=== PATIENT | female | born 1950 | race Caucasian/White ===

== ENCOUNTER 2018-03-02 12:04 | Inpatient (IN) | payer MEDICARE, OTHER ==
[2018-03-02 13:19] LABS: BASO # 0.1 (0.0-0.2); BASO % 0.7 % (0.0-2.0); EOS # 0.4 (0.0-0.7); EOS % 3.6 % (0-4.0); GRAN # 7.6 (1.4-6.5); GRAN % 69.1 % (42.2-75.2); HEMOGLOBIN 11.5 g/dl (12.5-16.0); LYMPH % 18.6 % (20.0-51.0); MEAN CELL VOLUME 98 fl (80.0-100.0); MEAN CORPUSCULAR HEMOGLOBIN 33 pg (27.0-31.0); MEAN CORPUSCULAR HGB CONC 33 g/dl (33.0-37.0); MEAN PLATELET VOLUME 9.8 fl (7.4-10.4); MONO # 0.8 (0.1-0.6); MONO % 7.7 % (1.7-9.3); PLATELET COUNT 275 K/mm3 (130-400); RED BLOOD COUNT 3.52 M/mm3 (4.10-5.30)
[2018-03-02 13:20] LABS: HEMATOCRIT 34.5 % (37.0-47.0)
[2018-03-02] MEDS ORDERED: TOPROL XL 50MG50 MG PO (13:21)
[2018-03-02] MEDS ORDERED: XANAX .25M0.25 MG/TA PO (13:21)
[2018-03-02] MEDS ORDERED: BENADRYL50 MG PO (13:22)
[2018-03-02] MEDS ORDERED: PHARMASSURE ZIN50 MG PO (13:23)
[2018-03-02] MEDS ORDERED: MULTI VITAMINS1 TAB PO (13:23)
[2018-03-02 13:24] LABS: PROTHROMBIN TIME 11.7 SECONDS (9.7-12.8)
[2018-03-02] MEDS ORDERED: ASPIRIN 81M81 MG/TA2 PO (13:24)
[2018-03-02 13:27] LABS: PARTIAL THROMBOPLASTIN TIME 42.6 SECONDS (26.0-37.0)
[2018-03-02 13:31] LABS: ALBUMIN 4.4 gm/dL (3.5-5.0); BILIRUBIN,TOTAL 0.7 mg/dL (0.0-1.0); POTASSIUM 5.2 mmol/L (3.4-5.0); TOTAL PROTEIN 9.7 gm/dL (6.4-8.2)
[2018-03-02 13:43] LABS: CREATININE, serum 8.24 mg/dL (0.52-1.25)
[2018-03-02 13:54] VITALS: BP 216/85; PULSE 64
[2018-03-02 16:11] VITALS: BP 202/62; PULSE 64; TEMP 97.5
[2018-03-02 19:01] LABS: CALCIUM 9.3 mg/dL (8.4-10.2); POTASSIUM 5.3 mmol/L (3.4-5.0)
[2018-03-02 19:23] LABS: CREATININE, serum 8.17 mg/dL (0.52-1.25)
[2018-03-02 23:53] VITALS: BP 139/42; PULSE 70; TEMP 97.9
[2018-03-03 00:09] VITALS: BP 155/54; PULSE 71; TEMP 99
[2018-03-03 04:02] VITALS: BP 119/34; PULSE 64; TEMP 98.4
[2018-03-03 06:51] LABS: BASO # 0.1 (0.0-0.2); BASO % 0.7 % (0.0-2.0); EOS # 0.2 (0.0-0.7); EOS % 2.1 % (0-4.0); GRAN # 5.8 (1.4-6.5); LYMPH # 1.8 (1.2-3.4); LYMPH % 20.3 % (20.0-51.0); MEAN CELL VOLUME 101 fl (80.0-100.0); MEAN CORPUSCULAR HGB CONC 33 g/dl (33.0-37.0); MEAN PLATELET VOLUME 9.7 fl (7.4-10.4); MONO % 10.7 % (1.7-9.3); PLATELET COUNT 212 K/mm3 (130-400); RED BLOOD COUNT 2.96 M/mm3 (4.10-5.30)
[2018-03-03 06:57] LABS: HEMOGLOBIN 9.9 g/dl (12.5-16.0); MEAN CORPUSCULAR HEMOGLOBIN 33 pg (27.0-31.0)
[2018-03-03 07:02] LABS: POTASSIUM 5.3 mmol/L (3.4-5.0)
[2018-03-03 07:08] LABS: CREATININE, serum 6.12 mg/dL (0.52-1.25)
[2018-03-03 08:14] VITALS: BP 136/38; PULSE 68; TEMP 98.5
== END 2018-03-03 11:13 | disposition home or self-care (01) | DRG 252 ==
LOC: MEDICAL 12:04
PROVIDERS: Internal Medicine Nephrology; Nurse Practitioner
PROC: 057A3ZZ Dilation of Left Brachial Vein, Percutaneous Approach (ICD-10-PCS; principal; 2018-03-02)
PROC: 057F3ZZ Dilation of Left Cephalic Vein, Percutaneous Approach (ICD-10-PCS; 2018-03-02)
PROC: 05CA3ZZ Extirpation of Matter from Left Brachial Vein, Percutaneous Approach (ICD-10-PCS; 2018-03-02)
PROC: 05CF3ZZ Extirpation of Matter from Left Cephalic Vein, Percutaneous Approach (ICD-10-PCS; 2018-03-02)
PROC: 5A1D70Z Performance of Urinary Filtration, Intermittent, Less than 6 Hours Per Day (ICD-10-PCS; 2018-03-02)
DX: T82.868A Thrombosis due to vascular prosthetic devices, implants and grafts, initial encounter (principal); N18.6 End stage renal disease; I13.2 Hypertensive heart and chronic kidney disease with heart failure and with stage 5 chronic kidney disease, or end stage renal disease; I50.32 Chronic diastolic (congestive) heart failure; E11.22 Type 2 diabetes mellitus with diabetic chronic kidney disease; Z99.2 Dependence on renal dialysis; D63.1 Anemia in chronic kidney disease; E11.319 Type 2 diabetes mellitus with unspecified diabetic retinopathy without macular edema; I48.91 Unspecified atrial fibrillation
CPT/HCPCS: C1725; C1769; C1887; C1894; J1200; J2405; J3010; Q9967

== ENCOUNTER 2018-03-07 11:38 | Inpatient (IN) | payer MEDICARE, OTHER ==
[~2018-03-07] VITALS: Ht 165.1 cm; Wt 93.0 kg
[~2018-03-07 11:38] MED LIST: ASPIRIN 81M81 MG/TA2 PO; BENADRYL50 MG PO; MULTI VITAMINS1 TAB PO; PHARMASSURE ZIN50 MG PO; TOPROL XL 50MG50 MG PO; XANAX .25M0.25 MG/TA PO
[2018-03-07 12:29] VITALS: BP 193/77; PULSE 65
[2018-03-07] MEDS ORDERED: FLEXERIL5 MG PO (12:39)
[2018-03-07] MEDS ORDERED: TYLENOL 500MG500 MG PO (12:40)
[2018-03-07] MEDS ORDERED: ZOFRAN 4MG T4 MG/TAB PO (12:41)
[2018-03-07 12:55] VITALS: BP 193/77; PULSE 65; TEMP 97.9
[2018-03-07 18:05] VITALS: BP 165/48; PULSE 75; TEMP 98.5
[2018-03-07 19:25] VITALS: BP 214/68; PULSE 78; TEMP 99.5
[2018-03-07 19:54] VITALS: BP 212/63
[2018-03-07 20:26] VITALS: BP 162/84
[2018-03-08 01:13] LABS: BASO % 0.5 % (0.0-2.0); EOS # 0.4 (0.0-0.7); EOS % 4.6 % (0-4.0); GRAN % 65.9 % (42.2-75.2); LYMPH # 1.5 (1.2-3.4); LYMPH % 19.7 % (20.0-51.0); MEAN CELL VOLUME 99 fl (80.0-100.0); MEAN CORPUSCULAR HGB CONC 34 g/dl (33.0-37.0); MEAN PLATELET VOLUME 9.5 fl (7.4-10.4); MONO # 0.7 (0.1-0.6); MONO % 8.9 % (1.7-9.3); PLATELET COUNT 204 K/mm3 (130-400); RED BLOOD COUNT 2.78 M/mm3 (4.10-5.30); REDCELL DISTRIBUTION WIDTH-CV 12.7 % (11.5-14.5)
[2018-03-08 01:15] LABS: HEMATOCRIT 27.4 % (37.0-47.0); HEMOGLOBIN 9.3 g/dl (12.5-16.0); MEAN CORPUSCULAR HEMOGLOBIN 33 pg (27.0-31.0)
[2018-03-08 01:26] VITALS: BP 165/61; PULSE 67; TEMP 97.9
[2018-03-08 03:50] VITALS: BP 159/63; PULSE 67; TEMP 98
[2018-03-08 10:31] VITALS: BP 137/54; PULSE 67; TEMP 97.8
[2018-03-08] MEDS ORDERED: ELIQUIS 2.5 PO (10:33)
[2018-03-08 12:11] LABS: CALCIUM 9.2 mg/dL (8.4-10.2); POTASSIUM 4.7 mmol/L (3.4-5.0)
[2018-03-08 12:34] LABS: CREATININE, serum 5.19 mg/dL (0.52-1.25)
[2018-03-08 13:38] VITALS: BP 133/65; PULSE 67; TEMP 98.1
== END 2018-03-08 18:30 | disposition home or self-care (01) | DRG 252 ==
LOC: EUO 11:38 → MEDICAL 17:19 → EUO 17:36 → MEDICAL 17:38
PROVIDERS: Internal Medicine
PROC: 03C83ZZ Extirpation of Matter from Left Brachial Artery, Percutaneous Approach (ICD-10-PCS; 2018-03-07)
PROC: 03783ZZ Dilation of Left Brachial Artery, Percutaneous Approach (ICD-10-PCS; 2018-03-07)
PROC: 057A3ZZ Dilation of Left Brachial Vein, Percutaneous Approach (ICD-10-PCS; 2018-03-07)
PROC: 3E05317 Introduction of Other Thrombolytic into Peripheral Artery, Percutaneous Approach (ICD-10-PCS; 2018-03-07)
PROC: 5A1D70Z Performance of Urinary Filtration, Intermittent, Less than 6 Hours Per Day (ICD-10-PCS; principal; 2018-03-08)
DX: T82.868A Thrombosis due to vascular prosthetic devices, implants and grafts, initial encounter (principal); N18.6 End stage renal disease; I13.2 Hypertensive heart and chronic kidney disease with heart failure and with stage 5 chronic kidney disease, or end stage renal disease; I50.32 Chronic diastolic (congestive) heart failure; E46 Unspecified protein-calorie malnutrition; E11.22 Type 2 diabetes mellitus with diabetic chronic kidney disease; I50.84 End stage heart failure; Z99.2 Dependence on renal dialysis; F41.9 Anxiety disorder, unspecified; E11.319 Type 2 diabetes mellitus with unspecified diabetic retinopathy without macular edema
CPT/HCPCS: A4216; J1644; J2997; Q9967

== ENCOUNTER 2018-04-02 07:53 | Inpatient (IN) | payer MEDICARE, OTHER ==
[~2018-04-02] VITALS: Ht 165.1 cm; Wt 96.7 kg
[~2018-04-02 07:53] MED LIST changes: +ELIQUIS 2.5 PO; +FLEXERIL5 MG PO; +TYLENOL 500MG500 MG PO; +ZOFRAN 4MG T4 MG/TAB PO
[2018-04-02 08:22] VITALS: BP 187/64; PULSE 63; TEMP 98
[2018-04-02] MEDS ORDERED: PROVENTIL0.09 MG/A1 IH (09:24)
[2018-04-02 10:49] VITALS: BP 199/84; PULSE 65
[2018-04-02 12:48] LABS: BASO % 0.5 % (0.0-2.0); EOS # 0.3 (0.0-0.7); EOS % 4.5 % (0-4.0); GRAN # 5.1 (1.4-6.5); LYMPH # 1.5 (1.2-3.4); LYMPH % 19.9 % (20.0-51.0); MEAN CELL VOLUME 102 fl (80.0-100.0); MEAN CORPUSCULAR HGB CONC 33 g/dl (33.0-37.0); MEAN PLATELET VOLUME 9.6 fl (7.4-10.4); MONO # 0.6 (0.1-0.6); MONO % 7.8 % (1.7-9.3); PLATELET COUNT 221 K/mm3 (130-400); RED BLOOD COUNT 2.61 M/mm3 (4.10-5.30); REDCELL DISTRIBUTION WIDTH-CV 14.3 % (11.5-14.5)
[2018-04-02 12:50] LABS: HEMATOCRIT 26.5 % (37.0-47.0); HEMOGLOBIN 8.7 g/dl (12.5-16.0); MEAN CORPUSCULAR HEMOGLOBIN 33 pg (27.0-31.0)
[2018-04-02 13:02] LABS: CALCIUM 8.8 mg/dL (8.4-10.2); POTASSIUM 4.3 mmol/L (3.4-5.0)
[2018-04-02 13:12] LABS: CREATININE, serum 10.73 mg/dL (0.52-1.25)
[2018-04-02 20:09] VITALS: BP 181/125; PULSE 81; TEMP 98.4
[2018-04-02 23:39] VITALS: BP 170/52; PULSE 75; TEMP 99.4
[2018-04-03] VITALS (7 sets, daily range): BP systolic 160–183; BP diastolic 54–74; PULSE 63–75; TEMP 97.4–98.3
[2018-04-03 10:29] LABS: HEMATOCRIT 27.9 % (37.0-47.0); HEMOGLOBIN 9.1 g/dl (12.5-16.0)
[2018-04-03 10:50] LABS: CALCIUM 9.1 mg/dL (8.4-10.2); POTASSIUM 4.7 mmol/L (3.4-5.0)
[2018-04-03 10:53] LABS: CREATININE, serum 6.64 mg/dL (0.52-1.25)
[2018-04-04 02:54] VITALS: BP 182/71; PULSE 70; TEMP 97.8
[2018-04-04 07:12] VITALS: BP 188/66; PULSE 75; TEMP 97.8
[2018-04-04 08:55] LABS: HEMATOCRIT 24.8 % (37.0-47.0); HEMOGLOBIN 8.3 g/dl (12.5-16.0)
[2018-04-04 09:04] LABS: CALCIUM 8.7 mg/dL (8.4-10.2); POTASSIUM 4.8 mmol/L (3.4-5.0)
[2018-04-04 09:07] LABS: CREATININE, serum 8.31 mg/dL (0.52-1.25)
[2018-04-04] MEDS ORDERED: NORVASC2.5 MG PO (10:31)
[2018-04-04 13:33] VITALS: BP 171/57; PULSE 70; TEMP 97.4
[2018-04-04 15:20] VITALS: BP 170/63; PULSE 65; TEMP 97.8
== END 2018-04-04 20:38 | disposition home or self-care (01) | DRG 314 ==
LOC: MEDICAL 07:53
PROVIDERS: Internal Medicine; Surgery
PROC: 0JH60XZ Insertion of Tunneled Vascular Access Device into Chest Subcutaneous Tissue and Fascia, Open Approach (ICD-10-PCS; principal; 2018-04-02)
PROC: 06H033Z Insertion of Infusion Device into Inferior Vena Cava, Percutaneous Approach (ICD-10-PCS; 2018-04-02)
PROC: 5A1D70Z Performance of Urinary Filtration, Intermittent, Less than 6 Hours Per Day (ICD-10-PCS; 2018-04-02)
PROC: 5A1D70Z Performance of Urinary Filtration, Intermittent, Less than 6 Hours Per Day (ICD-10-PCS; 2018-04-04)
DX: T82.49XA Other complication of vascular dialysis catheter, initial encounter (principal); N18.6 End stage renal disease; I13.2 Hypertensive heart and chronic kidney disease with heart failure and with stage 5 chronic kidney disease, or end stage renal disease; I50.32 Chronic diastolic (congestive) heart failure; E11.22 Type 2 diabetes mellitus with diabetic chronic kidney disease; Z99.2 Dependence on renal dialysis; D63.1 Anemia in chronic kidney disease; E11.319 Type 2 diabetes mellitus with unspecified diabetic retinopathy without macular edema; T82.838A Hemorrhage due to vascular prosthetic devices, implants and grafts, initial encounter
CPT/HCPCS: C1769; J1644; J2250; J3010; J3370; J7050; Q9967

== ENCOUNTER → 2018-05-10 | Outpatient (CLI) | payer MEDICARE, OTHER ==
[~2018-05-10] MED LIST changes: +NORVASC2.5 MG PO; +PROVENTIL0.09 MG/A1 IH
== END ==
LOC: COL.VAS 09:35
DX: T82.598A Other mechanical complication of other cardiac and vascular devices and implants, initial encounter (principal); N18.6 End stage renal disease
CPT/HCPCS: G0365

== ENCOUNTER 2018-05-17 09:04 | Day surgery (SDC) | payer MEDICARE, OTHER ==
[~2018-05-17] VITALS: Ht 165.1 cm; Wt 95.3 kg
[2018-05-17 10:37] VITALS: BP 144/85; PULSE 66; TEMP 97.7
[2018-05-17] MEDS ORDERED: NORVASC 5MG5 MG/TAB PO (10:53)
[2018-05-17] MEDS ORDERED: NATURAL E400 IU PO (10:55)
[2018-05-17] MEDS ORDERED: BENTYL 10MG10 MG/CAP PO (10:55)
[2018-05-17 11:11] LABS: CALCIUM 9.3 mg/dL (8.4-10.2); POTASSIUM 5.4 mmol/L (3.4-5.0)
[2018-05-17 11:24] LABS: CREATININE, serum 6.32 mg/dL (0.52-1.25)
[2018-05-17 12:56] VITALS: BP 161/59; PULSE 63; TEMP 97.5
[2018-05-17 13:11] VITALS: BP 168/65; PULSE 63
[2018-05-17 13:26] VITALS: BP 170/65; PULSE 66
[2018-05-17] MEDS ORDERED: NORCO 325 MG-51 TAB PO (13:36)
[2018-05-17 13:41] VITALS: BP 174/63; PULSE 63
== END 2018-05-17 14:30 | disposition home or self-care (01) ==
LOC: SDCO 09:04
PROVIDERS: Surgery
DX: I13.2 Hypertensive heart and chronic kidney disease with heart failure and with stage 5 chronic kidney disease, or end stage renal disease (principal); I50.9 Heart failure, unspecified; N18.6 End stage renal disease; E11.22 Type 2 diabetes mellitus with diabetic chronic kidney disease; Z99.2 Dependence on renal dialysis; Z79.4 Long term (current) use of insulin; T82.868D Thrombosis due to vascular prosthetic devices, implants and grafts, subsequent encounter; E11.319 Type 2 diabetes mellitus with unspecified diabetic retinopathy without macular edema; F41.9 Anxiety disorder, unspecified; Z79.899 Other long term (current) drug therapy; Z79.82 Long term (current) use of aspirin
CPT/HCPCS: J0690; J1100; J1644; J2405; J2704; J3010; J7030

== ENCOUNTER 2018-05-30 11:04 | Outpatient (CLI) | payer MEDICARE, OTHER ==
[~2018-05-30 11:04] MED LIST changes: +BENTYL 10MG10 MG/CAP PO; +NATURAL E400 IU PO; +NORCO 325 MG-51 TAB PO; +NORVASC 5MG5 MG/TAB PO
== END 2018-05-30 13:34 | disposition home or self-care (01) ==
LOC: COL.CAR 11:04
DX: T82.41XA Breakdown (mechanical) of vascular dialysis catheter, initial encounter (principal)

== ENCOUNTER 2018-08-31 08:00 | Outpatient (CLI) | payer MEDICARE, OTHER ==
[~2018-08-31] VITALS: Ht 165.1 cm; Wt 94.0 kg
[~2018-08-31 08:00] MED LIST changes: +LASIX 80MG TABL80 MG PO; +LOPRESSOR 225 MG/TAB PO; +NATURAL ZINC50 MG PO
[2018-08-31 08:32] VITALS: BP 158/65; PULSE 74; TEMP 97.6
[2018-08-31 10:45] VITALS: BP 143/85; PULSE 65; TEMP 97.4
[2018-08-31 11:09] VITALS: BP 169/72; PULSE 63
== END 2018-08-31 12:00 | disposition home or self-care (01) ==
LOC: COL.CAR 08:00
DX: T82.898A Other specified complication of vascular prosthetic devices, implants and grafts, initial encounter (principal); N18.6 End stage renal disease; Z88.9 Allergy status to unspecified drugs, medicaments and biological substances; Z88.6 Allergy status to analgesic agent; Z88.1 Allergy status to other antibiotic agents; Z88.0 Allergy status to penicillin; Z91.018 Allergy to other foods
CPT/HCPCS: J1644; J2250; J3010

== ENCOUNTER 2019-04-11 10:03 | Outpatient (CLI) | payer MEDICARE, OTHER ==
[2019-04-11] VITALS (8 sets, daily range): BP systolic 148–180; BP diastolic 58–66; PULSE 63–73; TEMP 97.6
[~2019-04-11] VITALS: Ht 165.1 cm; Wt 101.0 kg
[2019-04-11] MEDS ORDERED: TRANXENE 3.753.75 MG PO (11:05)
--- NOTE | 2019-04-11 12:33 | NUR ---
PT REFUSED IV ACCESS IN EXPRESS UNIT. MD NOTIFIED. LABS NOT OBTAINED AND MD NOTIFIED AND OK TO PROCEED WITH PROCEDURE.
--- NOTE | 2019-04-11 13:30 | NUR ---
Back from Physical Education Professor. Alert and oriented, denies pain and needs at this time. VSS. Bandaid to right forearm CD&I.
--- NOTE | 2019-04-11 15:15 | NUR ---
Discharge instructions given. Pt very anxious to leave and did not sign discharge signature page. Transferred to private car by eleanor
== END 2019-04-11 15:20 | disposition home or self-care (01) ==
LOC: COL.CAR 10:03
DX: T82.858A Stenosis of other vascular prosthetic devices, implants and grafts, initial encounter (principal); I12.0 Hypertensive chronic kidney disease with stage 5 chronic kidney disease or end stage renal disease; N18.6 End stage renal disease; Z91.018 Allergy to other foods; Z88.8 Allergy status to other drugs, medicaments and biological substances; Z88.0 Allergy status to penicillin; Z88.1 Allergy status to other antibiotic agents; Z79.82 Long term (current) use of aspirin; Z91.048 Other nonmedicinal substance allergy status
CPT/HCPCS: J1644; J2405; J3010; Q9967

== ENCOUNTER 2019-06-20 05:41 | Outpatient (CLI) | payer MEDICARE, MEDICAID ==
[2019-06-20] VITALS (9 sets, daily range): BP systolic 138–172; BP diastolic 46–83; PULSE 59–63; TEMP 98.2
[~2019-06-20] VITALS: Ht 165.2 cm; Wt 98.0 kg
[~2019-06-20 05:41] MED LIST changes: +TRANXENE 3.753.75 MG PO
[2019-06-20] MEDS ORDERED: COUMADIN 1MG1 MG/TAB PO (06:56)
[2019-06-20] MEDS ORDERED: TUMS EXTRA STR750 MG PO (07:04)
[2019-06-20] MEDS ORDERED: GAS AID MAXIMU125 MG PO (07:04)
[2019-06-20] MEDS ORDERED: LIDO2%JEL30 TOP (07:06)
[2019-06-20] MEDS ORDERED: ARTIFICIAL TEAR15 M7 OP (07:07)
[2019-06-20] MEDS ORDERED: PHARMASSURE ZIN50 MG PO (07:08)
[2019-06-20] MEDS ORDERED: ADULT MULTIVIT1 EACH PO (07:11)
[2019-06-20] MEDS ORDERED: ACIDOPHILIS PO (07:12)
--- NOTE | 2019-06-20 08:10 | NUR ---
SEE MERGE DOCUMENTATION FOR MEDICATION ADMINISTRATION TIMES AND INTRA/POST PROCEDURE SEDATION ASSESSMENTS.
--- NOTE | 2019-06-20 09:15 | NUR ---
Pt back from cath laboratory technician. resting comfortably supine. report from RADHA RN, fistula looks good, thrill palpated, bruit auscultated, bandaid in place covering stitch, no bleeding at this time. cms intact. pt awake and alert, aware of poc to monitor for 2 hours. she states has a ride home.
--- NOTE | 2019-06-20 10:21 | NUR ---
Pt is ambulatory to at this time. Steady gait. pt has been able to order a meal. otherwise pt recovering fine, cms intact, no bleeding at rt fistula site, bruit and thrill intact.
--- NOTE | 2019-06-20 10:52 | NUR ---
pt remains awake and alert, sitting up in high fow[place] eating lunch at this time.
--- NOTE | 2019-06-20 11:30 | NUR ---
Pt ready for discharge, she is dressed and sitting in chair. Pt called her ride home, saline lock was dc'd, cath intact, dressing applied. pt escorted to exit via wheelchair.
== END 2019-06-20 11:35 | disposition home or self-care (01) ==
LOC: COL.CAR 05:41
DX: T82.858A Stenosis of other vascular prosthetic devices, implants and grafts, initial encounter (principal); I12.0 Hypertensive chronic kidney disease with stage 5 chronic kidney disease or end stage renal disease; N18.6 End stage renal disease; Z91.018 Allergy to other foods; Z88.0 Allergy status to penicillin; Z88.8 Allergy status to other drugs, medicaments and biological substances; Z91.048 Other nonmedicinal substance allergy status; Z88.1 Allergy status to other antibiotic agents
CPT/HCPCS: C1725; C1769; J1644; J2250; J3010; J7050; Q9967

== ENCOUNTER 2019-08-13 11:15 | Outpatient (CLI) | payer MEDICARE, MEDICAID ==
[~2019-08-13] VITALS: Ht 165.1 cm; Wt 100.3 kg
[~2019-08-13 11:15] MED LIST changes: +ACIDOPHILIS PO; +ADULT MULTIVIT1 EACH PO; +ARTIFICIAL TEAR15 M7 OP; +COUMADIN 1MG1 MG/TAB PO; +GAS AID MAXIMU125 MG PO; +LIDO2%JEL30 TOP; +TUMS EXTRA STR750 MG PO
[2019-08-13 12:00] VITALS: BP 163/75; PULSE 70; TEMP 97.8
--- NOTE | 2019-08-13 12:27 | NUR ---
PT CHECKED HER BLOOD SUGAR WITH HER OWN MONITOR. RESULT WAS 133.
[2019-08-13] MEDS ORDERED: ADVIL200 MG PO (12:45)
[2019-08-13 13:17] VITALS: BP 177/85; PULSE 67
--- NOTE | 2019-08-13 13:22 | NUR ---
SEE MERGE DOCUMENTATION FOR MEDICATION ADMINISTRATION TIMES AND INTRA/POST PROCEDURE SEDATION ASSESSMENTS.
[2019-08-13 14:15] VITALS: BP 167/70; PULSE 67
--- NOTE | 2019-08-13 14:28 | NUR ---
FOOD WAS ORDERED. PT DOES NOT COMPLAIN OF PAIN. CANE AT BEDSIDE.
[2019-08-13 14:30] VITALS: BP 170/70; PULSE 67; PULSE 70
[2019-08-13 14:45] VITALS: BP 155/66; PULSE 66
[2019-08-13 15:00] VITALS: BP 115/79; PULSE 69
--- NOTE | 2019-08-13 15:00 | NUR ---
PER BONY GONZALES , CHARGE NURSE, DR SHIPLEY STATED IT WAS OK TO DISCHARGE PT AFTER 1 HOUR OF BEDREST. IV WAS DISCONTINUED BY BONY GONZALES.
--- NOTE | 2019-08-13 15:06 | NUR ---
INT discontinued intact
--- NOTE | 2019-08-13 15:15 | NUR ---
Discharge instructions were reviewed with pt. Pt voices understand. Pt tolerated intake with no N/V. Pt was discharged via w/c to the care of television cable installerDianne, with cane and d/c instructions in hand.
--- NOTE | 2019-08-13 16:25 | NUR ---
PT DID DECLINE A ORTHO/PROSTHETIC AIDE CONSULTATION. SHE DID NOT WISH TO SPEAK WITH THEM AT THIS TIME AND DID NOT FEEL THREATENED.
== END 2019-08-13 15:15 | disposition home or self-care (01) ==
LOC: COL.CAR 11:15
DX: T82.858A Stenosis of other vascular prosthetic devices, implants and grafts, initial encounter (principal); N18.6 End stage renal disease; Z91.018 Allergy to other foods; Z88.8 Allergy status to other drugs, medicaments and biological substances; Z91.048 Other nonmedicinal substance allergy status; Z88.0 Allergy status to penicillin; Z88.1 Allergy status to other antibiotic agents; Z88.6 Allergy status to analgesic agent; Z79.01 Long term (current) use of anticoagulants; Z99.2 Dependence on renal dialysis
CPT/HCPCS: J1644; J2250; J3010; Q9967